=== PATIENT | female | born 1975 | race Caucasian/White ===

== ENCOUNTER 2016-12-13 13:53 | Emergency (ER) | payer MEDICAID ==
[~2016-12-13] VITALS: Wt 56.8 kg
[2016-12-13] MEDS ORDERED: CETI10CA PO (14:18)
[2016-12-13] MEDS ORDERED: PRED20TA PO (14:18)
[2016-12-13] MEDS ORDERED: BEN25 PO (14:18)
--- NOTE | 2016-12-13 14:27 | ERD ---
ER Documentation Chief Complaint Date/Time DATE: 12/13/16 TIME: 14:19 Chief Complaint rash HPI Patient is a 41-year-old female who presents to the emergency department with rash 3 weeks. Patient states that the rash initially occurred 3 weeks ago and then reoccurred over the last 4 days. Patient describes a rash to be itchy in nature. Patient states she is unable to sleep due to the itching. Patient denies taking any medication. Patient denies any new products, creams, lotions , foods, medications, environments. 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 Patient is unsure if she is allergic to the chemicals used. Patient denies any tongue swelling, lip swelling, throat swelling, difficulty breathing, chest pain or loss of consciousness. Patient denies anyone in her household having similar rashes. ROS All systems reviewed and are negative except as per history of present illness. Medications Home Meds Active Scripts Diphenhydramine Hcl* (Benadryl*) 25 Mg Cap, 25 MG PO Q6, #30 CAP Prov:SUZE MENENDEZ PA-C 12/13/16 Cetirizine Hcl* (Zyrtec*) 10 Mg Capsule, 10 MG PO DAILY, #20 TAB.CHEW Prov:SUZE MENENDEZ PA-C 12/13/16 Prednisone* (Prednisone*) 20 Mg Tab, 40 MG PO DAILY for 5 Days, TAB Prov:SUZE MENENDEZ PA-C 12/13/16 Allergies Allergies: Coded Allergies: No Known Drug Allergy (Unverified Allergy, Unknown, 10/19/06) PMhx/Soc Medical and Surgical Hx: pt denies Medical Hx, pt denies Surgical Hx Hx Alcohol Use: No Hx Substance Use: No Hx Tobacco Use: No FmHx Family History: No diabetes Physical Exam Vitals Vital Signs Date Time Temp Pulse Resp B/P Pulse Ox O2 Delivery O2 Flow Rate FiO2 12/13/16 13:55 97.6 78 20 111/55 100 Physical Exam GENERAL: Well-developed, well-nourished female. Appears in no acute distress. Speaking in full sentences HEAD: Normocephalic, atraumatic. EYES: Pupils are equally reactive bilaterally. EOMs grossly intact. No conjunctival erythema. ENT: Moist mucous membranes. No uvula deviation. No kissing tonsils. No tongue swelling, no lip swelling, no throat swelling. NECK: Supple. No meningismus. Normal range of motion of the neck. LUNG: Clear to auscultation bilaterally. No rhonchi, wheezing, rales or coarse breath sounds. HEART: Regular rate and rhythm. No murmurs, rubs or gallops. EXTREMITIES: Equal pulses bilaterally. No peripheral clubbing, cyanosis or edema. No unilateral leg swelling. NEUROLOGIC: Alert and oriented. Moving all four extremities without any difficulty. Normal speech. Steady gait. SKIN: Normal color. Warm and dry. Erythematous maculopapular, scabbed lesions noted throughout the patient's body, +excoriations Procedures/MDM MEDICAL DECISION MAKING: This is a 41-year-old female who presents with a rash throughout her body 3 weeks. Vital signs were reviewed. Patient was afebrile. Patient is not diabetic. Patient did report that the rash is itchy in nature. Given these findings, the patient's presentation is most consistent with allergic versus irritant contact dermatitis. I have a much lower clinical concern for necrotizing fasciitis, sepsis, gangrene, Angel-Cali syndrome, toxic epidural necrolysis, abscess, cellulitis, herpes zoster, viral exanthem, anaphylaxis, impetigo, dermatitis. Low suspicion for scabies and insect bites given that patient denied any other individuals in her household having a similar rash. PRESCRIPTIONS: Prednisone, Zyrtec, Benadryl DISCHARGE: At this time, patient is stable for discharge and outpatient management. I have advised the patient to avoid any new products, creams or possible allergens. I have advised the patient to avoid scratching the lesions. I have instructed the patient to follow-up with his/her primary care physician in 1-2 days. If symptoms persist, patient may need to see a pre fabricator for further examinations and testing. I have instructed the patient to promptly return to the ER at any time for any new or worsening symptoms including increased pain, fever, redness, swelling, warmth, difficulty breathing or vomiting. The patient and/or family expressed understanding of and agreement with this plan. All questions were answered. Home care instructions were provided. Departure Diagnosis: Primary Impression: Rash Condition: Stable Patient Instructions: Self-Care for Skin Rashes Referrals: KATHERIN BEDOLLA MD,RADHA SULLIVAN,RICARDO COFFEY MD, MD, LAWRENCE SHAPIRO,GABRIELA Tam [facility] YOU HAVE RECEIVED A MEDICAL SCREENING EXAM AND THE RESULTS INDICATE THAT YOU DO NOT HAVE A CONDITION THAT REQUIRES URGENT TREATMENT IN THE EMERGENCY DEPARTMENT. FURTHER EVALUATION AND TREATMENT OF YOUR CONDITION CAN WAIT UNTIL YOU ARE SEEN IN YOUR DOCTORS OFFICE WITHIN THE NEXT 1-2 DAYS. IT IS YOUR RESPONSIBILITY TO MAKE AN APPOINTMENT FOR FOLOW-UP CARE. IF YOU HAVE A PRIMARY DOCTOR --you should call your primary doctor and schedule an appointment IF YOU DO NOT HAVE A PRIMARY DOCTOR YOU CAN CALL OUR PHYSICIAN REFERRAL HOTLINE AT IF YOU CAN NOT AFFORD TO SEE A PHYSICIAN YOU CAN CHOSE FROM THE FOLLOWING [facility] [address] [facility]. [facility] [address] [facility]. [facility] [address] [facility] [facility] [address] [facility] [facility] [address] [facility]. [facility] [address] [facility]. [facility] YOU HAVE RECEIVED A MEDICAL SCREENING EXAM AND THE RESULTS INDICATE THAT YOU DO NOT HAVE A CONDITION THAT REQUIRES URGENT TREATMENT IN THE EMERGENCY DEPARTMENT. FURTHER EVALUATION AND TREATMENT OF YOUR CONDITION CAN WAIT UNTIL YOU ARE SEEN IN YOUR DOCTORS OFFICE WITHIN THE NEXT 1-2 DAYS. IT IS YOUR RESPONSIBILITY TO MAKE AN APPOINTMENT FOR FOLOW-UP CARE. IF YOU HAVE A PRIMARY DOCTOR --you should call your primary doctor and schedule and appointment IF YOU DO NOT HAVE A PRIMARY DOCTOR YOU CAN CALL OUR PHYSICIAN REFERRAL HOTLINE AT . IF YOU CAN NOT AFFORD TO SEE A PHYSICIAN YOU CAN CHOSE FROM THE FOLLOWING [facility]: [facility] [address] [place] [address] [facility] [address] [place] [address] [facility] [address] [place] [address] Additional Instructions: Call your primary care doctor TOMORROW for an appointment during the next 1-2 days.See the doctor sooner or return here if your condition worsens before your appointment time. If rash continues, patient may need to follow-up with a pre fabricator. See referral information above. SUZE MENENDEZ PA-C Dec 13, 2016 14:27
== END 2016-12-14 07:34 | disposition home or self-care (01) ==
LOC: FTE 13:53 → E/R 12-14 07:34
DX: R21 Rash and other nonspecific skin eruption (principal)
CPT/HCPCS: 99283